=== PATIENT | female | born 1945 | race Caucasian/White ===

== ENCOUNTER 2018-06-20 13:11 | Day surgery (SDC) | payer MEDICARE ==
[2018-06-20] MEDS ORDERED: BUPIVACAINE 0.5% W/EPI MPF 30 ML VIAL SQ ONE (14:40)
[2018-06-20] MEDS ORDERED: LIDOCAINE 1% W/EPI 1:200,000 MPF 30ML SQ ONE (14:40)
--- NOTE | 2018-06-21 10:00 | Operative Note ---
DATE OF SURGERY: 06/20/2018 PREOPERATIVE DIAGNOSIS: Ingrown toenail right 3rd toe. POSTOPERATIVE DIAGNOSIS: Ingrown toenail right 3rd toe. OPERATION: Removal of nail and nail matrix right 3rd toe. STAFF SURGEON: Cody Harris MD ANESTHESIA: Local, digital block. PREPARATION: Chloraprep. INDIVIDUAL CONSIDERATIONS: None. PROCEDURE: The patient was taken to the operating room and placed supine on the operating room table. Her right foot was prepped and draped in the usual fashion. A digital block was done with a 50/50 mixture of 0.5% Marcaine with epinephrine and 1% lidocaine with epinephrine. I then went ahead and made an incision right at the apex of the cuticle at the top of the nail and then fanning both medially and laterally creating a flap. I then went ahead and removed the nail and then sherice the skin flap back about 1.5 cm right to the level of the DIP joint. I then went ahead and carefully with sharp dissection removed all remnants of nail matrix that I could see. After irrigation, I trimmed this back to the skin level so the nail bed just met the skin and then closed the skin with interrupted 4-0 nylon and then placed a sterile bulky dressing. She was taken back to recovery in good condition. There were no complications. BAILEY
== END 2018-06-20 15:15 | disposition home or self-care (01) ==
LOC: SUR 13:11
PROVIDERS: ATTEND Orthopaedic Surgery
DX: L60.0 Ingrowing nail (principal); I10 Essential (primary) hypertension; E78.00 Pure hypercholesterolemia, unspecified; Z79.01 Long term (current) use of anticoagulants